=== PATIENT | male | born 1975 | race Asian ===

== ENCOUNTER 2025-07-18 13:30 | Emergency (ER) | payer BC ==
[~2025-07-18] VITALS: Ht 182.9 cm; Wt 91.0 kg
[2025-07-18 13:34] VITALS: O2SAT 98
[2025-07-18] MEDS: SODIUM CHLORIDE 0.9% 1,000 ML IV ONE (14:06)
[2025-07-18 14:32] LABS: BASOPHILS % 0.3 % (0.0-2.0); EOSINOPHILS % 2.2 % (0.0-5.0); HEMATOCRIT. 46.4 % (42.0-52.0); HEMOGLOBIN. 15.6 g/dL (14.0-18.0); LYMPHOCYTES % 23.9 % (20.0-50.0); MEAN PLATELET VOLUME 6.5 fl (7.4-10.4); MONOCYTES % 8.2 % (2.0-8.0); NEUTROPHILS % 65.4 % (40.0-76.0); PLATELET 265 x1000/uL (130-400); RED BLOOD CELL COUNT 4.99 mill/uL (4.7-6.1); RED CELL DISTRIBUTION WIDTH 13.5 % (11.6-14.6)
[2025-07-18 14:49] LABS: CREATININE 1.1 mg/dL (0.6-1.3); TROPONIN I HIGH SENSITIVITY < 4 ng/L (3.0-53); UREA NITROGEN BLOOD 10 mg/dL (9-23)
[2025-07-18 14:51] LABS: ASPARTATE AMINOTRANSFERASE 25 IU/L (<34); BILIRUBIN DIRECT 0.1 mg/dL (<=3.0); BILIRUBIN TOTAL 0.5 mg/dL (0.1-1.0); PROTEIN TOTAL 7.1 g/dL (6.0-8.3)
[2025-07-18 15:47] LABS: CLARITY URINE CLEAR (CLEAR); COLOR URINE YELLOW (YELLOW); GLUCOSE URINE NEGATIVE (NEGATIVE); KETONES URINE 1+ (NEGATIVE); LEUKOCYTE ESTERASE URINE NEGATIVE (NEGATIVE); NITRITE URINE NEGATIVE (NEGATIVE); OCCULT BLOOD URINE NEGATIVE (NEGATIVE); PH URINE 7.5 (4.5-8.0); PROTEIN URINE NEGATIVE (NEGATIVE); SPECIFIC GRAVITY URINE 1.009 (1.005-1.030); UROBILINOGEN URINE 0.2 E.U./dL (0.2-1.0)
[2025-07-18] MEDS: MECLIZINE 25MG TABLET PO ONE (16:12)
[2025-07-18] MEDS: DIPHENHYDRAMINE 50MG/ML VIAL IV ONE (16:13)
[2025-07-18 16:44] LABS: TROPONIN I HIGH SENSITIVITY < 4 ng/L (3.0-53)
[2025-07-18 17:45] VITALS: BP 131/95; PULSE 69; RESP 16; TEMP 36.8; O2SAT 98
== END 2025-07-18 18:08 | disposition home or self-care (01) ==
LOC: ER 13:30 → CANBEDREQ 17:38 → ER 18:08
DX: R42 Dizziness and giddiness (principal); I10 Essential (primary) hypertension; G47.00 Insomnia, unspecified; Z88.8 Allergy status to other drugs, medicaments and biological substances
CPT/HCPCS: 80076; 80048; 81003; 83690; 85025; 84484; 36415; 71045; 70450; 93005; 96361; 96374; 99285; J8597; J1200; J7030; Z7610 ×2; A4606